=== PATIENT | female | born 1970 | race Caucasian/White ===

== ENCOUNTER 2018-10-27 13:58 | Outpatient (RCR) | payer OTHER | END 2018-10-28 | LOC: PT 13:58 | PROVIDERS: ATTEND Specialist | DX: M25.561 Pain in right knee (principal); M24.661 Ankylosis, right knee; M62.81 Muscle weakness (generalized); R26.2 Difficulty in walking, not elsewhere classified ==

== ENCOUNTER 2018-11-25 14:00 | Outpatient (RCR) | payer OTHER | END 2018-11-28 | LOC: PT 14:00 | PROVIDERS: ATTEND Specialist | DX: M25.562 Pain in left knee (principal); M25.662 Stiffness of left knee, not elsewhere classified; M62.81 Muscle weakness (generalized); R26.2 Difficulty in walking, not elsewhere classified ==

== ENCOUNTER 2018-12-02 14:13 | Outpatient (RCR) | payer OTHER | END 2018-12-28 | LOC: PT 14:13 | PROVIDERS: ATTEND Specialist | DX: M25.561 Pain in right knee (principal); M24.661 Ankylosis, right knee; M62.81 Muscle weakness (generalized); R26.2 Difficulty in walking, not elsewhere classified ==